=== PATIENT | female | born 1965 | race Caucasian/White ===

== ENCOUNTER 2017-07-09 03:13 | Emergency (ER) | payer BC ==
[2017-07-09] MEDS ORDERED: ONDANSETRON HCL/PF 2 MG/ML VIAL ONE ×2 (03:28→06:13)
[2017-07-09] MEDS ORDERED: ONDANSETRON HCL/PF 2 MG/ML VIAL IV ONE ×2 (03:33→06:09)
[2017-07-09] MEDS ORDERED: PANTOPRAZOLE SODIUM 40 MG in NORMAL SALINE 100 ML IV ONE (03:33)
[2017-07-09] MEDS ORDERED: HYDROmorphone HCL 2 MG/ML VIAL IV ONE (03:34)
[2017-07-09] MEDS ORDERED: PANTOPRAZOLE SODIUM 40 MG/100 ML PIGGYBACK IV ONE (03:38)
[2017-07-09] MEDS ORDERED: HYDROmorphone HCL 2 MG/ML VIAL ONE (03:38)
[2017-07-09 03:55] LABS: Hematocrit 41.1 % (37.0-47.0); Hemoglobin 13.8 gm/dL (12.5-16.0); Mean Cell Volume 90.7 fl (78-100); Mean Corpuscular Hemoglobin 30.5 pg (27-31); Mean Corpuscular Hgb Conc 33.6 g/dl (32-36); Mean Platelet Volume 10.7 fl (6.0-9.5); Neutrophil # 10.3 K/mm3 (1.3-6.0); Neutrophil % 80.3 % (42-75.0); Platelet Count 183 K/mm3 (150-450); Red Blood Count 4.53 M/mm3 (4.2-5.4); Red Cell Distribution Width 13.2 % (11.5-14.0); White Blood Count 12.8 K/mm3 (4.0-10.5)
[2017-07-09] MEDS ORDERED: DOXYCYCLINE HYCLATE 100 MG TABLET ONE (03:59)
[2017-07-09 04:15] LABS: Albumin * 3.7 gm/dl (3.4-5.0); Anion Gap 12.1 mmol/L (6.8-13.8); Bilirubin, Total 0.4 mg/dL (0.0-1.1); Ca. Corrected For Albumin 8.9 mg/dL (8.4-10.2); Carbon Dioxide 26.6 mmol/L (24-32.6); Potassium 2.7 mmol/L (3.4-4.6); Total Protein 7.2 gm/dL (6.2-8.2)
[2017-07-09] MEDS ORDERED: DIATRIZOATE MEGLUMINE, SODIUM 30 ML BTL PO ONE (04:52)
[2017-07-09] MEDS ORDERED: DIATRIZOATE MEGLUMINE, SODIUM 30 ML BTL ONE (04:56)
--- NOTE | 2017-07-09 05:45 | ERNOTE ---
Abdominal HPI - Narrative Date of Service: 07/09/17 - General Chief Complaint: Abdominal Pain Time Seen by Provider: 07/09/17 03:32 Source: patient Exam Limitations: no limitations - Immun/Allergies/Home Medications Immunizatons: IMMUNIZATION HX Immunizations Up to Date Yes History of Influenza Vaccine No Hx Pneumococcal Vaccination No Allergies/Adverse Reactions: Allergies anesthesia Allergy (Uncoded 06/05/15 03:56) Home Medications: HOME MEDICATIONS Albuterol Sulfate [Albuterol Sulfate 0.63 MG/3ML] 0.63 mg IH Q4HWA PRN 03/21/14 [Last Taken Unknown] Beclomethasone Dipropionate [Qvar] 2 puff IH BID 03/21/14 [Last Taken Unknown] Cetirizine HCl [Zyrtec] 10 mg PO DAILY 08/15/14 [Last Taken Unknown] Escitalopram Oxalate [Lexapro] 10 mg PO DAILY 08/15/14 [Last Taken Unknown] Hydrochlorothiazide 50 mg PO DAILY 08/15/14 [Last Taken Unknown] Ibuprofen [Motrin] 800 mg PO QID PRN #100 tab 08/15/14 [Last Taken Unknown] Montelukast Sodium [Singulair] 10 mg PO DAILY 08/15/14 [Last Taken Unknown] HYDROcodone/ACETAMINOPHEN [Burdette 5-325] 1 tab PO Q4H PRN #40 tab 07/09/17 [Last Taken Unknown] Ondansetron [Zofran Odt] 4 mg PO Q8H PRN #20 tab 07/09/17 [Last Taken Unknown] - History of Present Illness Narrative: patient ate tacos last ig, woke up with urq pain with radiation to back, nausea and vomiting Timing: constant, getting worse Quality: moderate, sharpness, stabbing Activities at Onset: none Modifying Factors - (Improves): Present: other - nothing Modifying Factors - (Worsens): Present: other - nothing Associated Symptoms: Present: nausea, vomiting, loss of appetite Prior Abdominal Problems: Present: none Review of Systems - Narrative Narrative: patient appears in distress - Review of Systems Constitutional: Present: See HPI, weakness EYE: Present: no symptoms reported ENT: Present: no symptoms reported Respiratory: Present: no symptoms reported Cardiology: Present: no symptoms reported Gastrointestinal/Abdominal: Present: nausea, vomiting, abdominal pain Genitourinary: Present: no symptoms reported Musculoskeletal: Present: no symptoms reported Skin: Present: no symptoms reported Neurological: Present: no symptoms reported Endocrine: Present: no symptoms reported Hematologic/Lymphatic: Present: no symptoms reported Psych: Present: no symptoms reported All Other Systems: All systems neg except as marked - Narrative Narrative: unremarkable - Patient's Past Medical History Patient History - Medical: Anxiety Patient History - Cardiac/Respiratory: Asthma Patient History - Cancer: Skin Patient History - Surgical Procedures: Appendectomy, Hysterectomy, Other Patient History - Other: None LMP (females 10-50): Menopausal - Family History Family History:: no untoward family reactions to anesthesia, no familial bleeding tendencies, no family history of clotting disorders, no family history of premature - Family History Mother Family History - Medical: Family History - Cardiac/Respiratory: No pertinent hx Family History - Cancer: No pertinent family hx Brother Family History - Medical: Family History - Cardiac/Respiratory: No pertinent hx Family History - Cancer: No pertinent family hx Father Family History - Medical: Family History - Cardiac/Respiratory: Cardiac Arrest, Coronary Heart Disease Family History - Cancer: No pertinent family hx - Social History Living Situations: spouse Psych History: Hx of Anxiety, Current tx/ever been on anti-depressants or anti- anxiety meds Does anyone smoke in the home?: No Have you smoked in the past 12 months: No Do you dip or chew tobacco: No Patient requests Smoking Cessation Consult: No Initiate information on Smoking Cessation: No Alcohol Use: occasionally - Immunizations Immunizations Up to Date: Yes Hx Pneumococcal Vaccination: No History of Influenza Vaccine: No Physical Exam - Physical Exam General Appearance: Present: moderate distress Head Exam: Present: normal inspection, no evidence of injury Eye Exam: Normal inspection: bilateral, PERRL: bilateral, EOMI: bilateral Ears, Nose, Throat: Present: normal ENT inspection Neck: Present: normal inspection, nontender Respiratory: Present: no respiratory distress, normal breath sounds, no accessory muscle use, chest nontender, lungs clear Cardiovascular/Chest: Present: regular rate, rhythm, no murmur, normal peripheral pulses Peripheral Pulses: N=norm/S=strong/W=weak/B=bound/A=absent: Carotid (R): Normal , Carotid (L): Normal, Radial (R): Normal, Radial (L): Normal, Femoral (R): Normal, Femoral (L): Normal, Dorsalis-pedis (R): Normal, Dorsalis-pedis (L): Normal Gastrointestinal/Abdominal: Present: normal bowel sounds, tenderness, distended , guarding, other - urq pain with radiation into back Back Exam: Present: normal inspection, normal range of motion, no CVA tenderness Extremity Exam: Present: normal inspection, non-tender, normal range of motion, no edema Neurological Exam: Present: alert, oriented, normal mood/affect, no motor/ sensory deficits DTR: N=norm/NB=norm/brisk/A=abs/DD=dull/dimin/HC=hyperactive: Bicep (R): Normal , Bicep (L): Normal, Tricep (R): Normal, Tricep (L): Normal, Knee (R): Normal, Knee (L): Normal, Ankle (R): Normal, Ankle (L): Normal Skin Exam: Present: normal color, warm/dry Lymphatic Exam: Present: no adenopathy ED Progress - Results and Orders Patient's Lab Results:: I have reviewed the patient's lab results. - Vital Signs Patient's Vital Signs:: I have reviewed the patient's vital signs. Vital Signs: Vital Signs 07/09/17 03:17 Temperature 36.5 C Pulse Rate 82 Respiratory 72 H Rate Blood Pressure 116/74 O2 Sat by Pulse 100 Oximetry - X-Ray X-Ray #1 X-Ray: abdomen - no acute process - CT/Ultrasound CT/Ultrasound Narrative: radiologist reports gallstones - Progress/Reassessment Chief Complaint: Abdominal Pain Progress:: Improved - Transfer of Care Expected Disposition: Discharge Plan - Plan Plan: german discharged to f/u with surgery Departure Clinical Impression: Cholelithiasis - Departure Disposition: Home self-care Condition: Fair Instructions: Cholelithiasis, [id number] Referrals: Amara Carlos MD [Primary Care Provider] - Prescriptions: HYDROcodone/ACETAMINOPHEN [Burdette 5-325] 1 tab PO Q4H PRN #40 tab PRN Reason: Pain Ondansetron [Zofran Odt] 4 mg PO Q8H PRN #20 tab PRN Reason: Nausea
[2017-07-09 07:20] LABS: Urine Appearance Slightly Cloudy; Urine Bilirubin Negative (NEGATIVE); Urine Blood Negative /ul (NEGATIVE); Urine Color Yellow; Urine Ketone Large mg/dL (NEGATIVE); Urine Nitrite Negative (NEGATIVE); Urine Protein Negative (NEGATIVE); Urine RBC None Seen /hpf (0-5); Urine Urobilinogen Normal (NORMAL); Urine WBC 0-5 /hpf (0-5)
[2017-07-09 07:21] LABS: Urine Bacteria 1+
[2017-07-09 07:47] VITALS: BP 120/67
[2017-07-09] MEDS ORDERED: ONDANSETRON 4 MG TAB.RAPDIS PO ONE (07:56)
[2017-07-09] MEDS ORDERED: HYDROcodone/ACETAMINOPHEN 1 EACH TABLET PO ONE (07:56)
[2017-07-09] MEDS ORDERED: HYDROcodone/ACETAMINOPHEN 1 EACH TABLET ONE (08:04)
[2017-07-09] MEDS ORDERED: ONDANSETRON HCL 8 MG TABLET ONE (08:04)
== END 2017-07-09 08:19 | disposition home or self-care (01) ==
LOC: ER 03:13
DX: J45.909 Unspecified asthma, uncomplicated; Z85.828 Personal history of other malignant neoplasm of skin; K80.20 Calculus of gallbladder without cholecystitis without obstruction
CPT/HCPCS: 36415; 74020; 74177; 80053; 81001; 82150; 83690; 85025; 96365; 96375; 96376; 99284; J2405